=== PATIENT | female | born 1990 | race Two or more races ===

== ENCOUNTER 2017-09-13 08:00 | Outpatient (CLI) | payer MEDICAID | END 2017-09-13 23:59 | disposition home or self-care (01) | LOC: LAB.R 08:00 | PROVIDERS: ATTEND Obstetrics & Gynecology | DX: Z36.9 Encounter for antenatal screening, unspecified (principal) | CPT/HCPCS: 87491; 87591 ==

== ENCOUNTER 2017-09-13 15:31 | Outpatient (CLI) | payer MEDICAID ==
[2017-09-13 16:07] LABS: BILIRUBIN,URINE NEGATIVE (NEGATIVE)
[2017-09-13 16:09] LABS: BASOPHILS % (AUTO) 0.5 %; EOSINOPHILS % (AUTO) 1.1 %; HCT - HEMATOCRIT 38.1 % (37.0-47.0); LYMPHOCYTES % (AUTO) 15.2 %; MEAN CORPUSCULAR HEMOGLOBIN 29.2 pg (27.0-31.0); MEAN CORPUSCULAR VOLUME 85.9 fL (81.0-99.0); MEAN PLATELET VOLUME 7.1 fL (7.9-10.8); MONOCYTES % (AUTO) 6.1 %; NEUTROPHILS % (AUTO) 77.1 %; RED BLOOD COUNT 4.44 10^6/uL (4.20-5.40); RED CELL DISTRIBUTION WIDTH 13.1 % (12.0-15.0); UNCORRECTED WHITE BLOOD COUNT 10.8 x10^3/uL; WHITE BLOOD COUNT 10.8 x10^3/uL (4.8-10.8)
[2017-09-13 16:23] LABS: WBC,URINE 0-3 /HPF (0-5)
[2017-09-13 16:28] LABS: BAND NEUTROPHILS % (MANUAL) 3 %; LYMPHOCYTES % (MANUAL) 25 %; NEUTROPHILS % (MANUAL) 68 %; NP AUTO DIFFERENTIAL? YES; NP MAN DIFFERENTIAL? NO; PLATELET ESTIMATE, MANUAL NORMAL (130-450,000) (NORMAL); PLATELET MORPHOLOGY NORMAL APPEARANCE (NORMAL); TOTAL CELLS COUNTED 100
[2017-09-15 18:01] LABS: TEST RESULT REPORT
== END 2017-09-13 15:32 | disposition home or self-care (01) ==
LOC: LAB 15:31
PROVIDERS: ATTEND Obstetrics & Gynecology
DX: Z36.9 Encounter for antenatal screening, unspecified (principal)
CPT/HCPCS: 36415; 81001; 81599; 85025; 86762; 86780; 86850; 86900; 86901; 87340; 87389

== ENCOUNTER 2017-11-03 08:00 | Outpatient (CLI) | payer MEDICAID | END 2017-11-03 08:01 | LOC: LAB.R 08:00 | PROVIDERS: ATTEND Obstetrics & Gynecology | DX: N76.0 Acute vaginitis (principal) | CPT/HCPCS: 87480; 87510; 87660 ==

== ENCOUNTER 2017-12-15 08:20 | Outpatient (CLI) | payer MEDICAID ==
--- NOTE | 2017-12-16 11:30 | Ultrasound Report ---
OB ULTRASOUND: 12/15/2017 CLINICAL INDICATION: anatomy. TECHNIQUE: Real-time scanning was performed with digital sales representative static images obtained. LAST MENSTRUAL PERIOD 07/15/2017 CLINICAL AGE 21 weeks 6 days US AGE 22 weeks 1 day EFW HADLOCK 461 grams EFW% HADLOCK --% HEART RATE 152 bpm EDC 04/21/2018 US EDC 04/19/2018 BPD HADLOCK 23 weeks 2 days; Mean mm 56 HC HADLOCK 21 weeks 6 days; Mean mm 196 AC HADLOCK 22 weeks 3 days; Mean mm 175 FL HADLOCK 21 weeks 1 day; Mean mm 35 PRESENTATION moving PLACENTAL LOCATION posterior CERVICAL LENGTH 5.0 cm AMNIOTIC FLUID 12.84 cm, subjectively normal - MVP 3.9 cm FINDINGS There is a single viable intrauterine gestation, in variable position. heart rate is 152 BPM. The placenta is posterior without evidence of previa. Amniotic fluid volume is subjectively normal, with a deepest pocket of 3.9 cm. By size, the fetus measures 22 weeks 1 day (21 weeks 6 days by LMP). The following anatomic structures were visualized and appear normal: The intracranial contents, including the ventricles and posterior fossa; the lips and orbits; the spine; the heart, including 4 chamber view and outflow tracts, and diaphragm; the abdominal contents, including the stomach, the bilateral kidneys, and urinary bladder, as well as a normal 3 vessel cord insertion; 4 limbs. No free fluid is present. Incidental note is made of a right corpus luteum. IMPRESSION: SINGLE VIABLE INTRAUTERINE GESTATION, WITH SIZE IN KEEPING WITH LMP DATING. NORMAL ANATOMIC SURVEY. TD: 12/15/2017 17:43 [facility]
== END 2017-12-15 08:21 | disposition home or self-care (01) ==
LOC: DI 08:20
PROVIDERS: ATTEND Obstetrics & Gynecology
DX: Z36.9 Encounter for antenatal screening, unspecified (principal)
CPT/HCPCS: 76811

== ENCOUNTER 2018-01-23 10:56 | Outpatient (CLI) | payer MEDICAID ==
[2018-01-23 12:56] LABS: HGB - HEMOGLOBIN 10.9 g/dL (12.0-16.0); MEAN CORPUSCULAR HEMOGLOBIN 30.7 pg (27.0-31.0); MEAN CORPUSCULAR HGB CONC 34.1 g/dL (32.0-36.0); MEAN PLATELET VOLUME 7.1 fL (7.9-10.8); RED BLOOD COUNT 3.54 10^6/uL (4.20-5.40); RED CELL DISTRIBUTION WIDTH 13.3 % (12.0-15.0); WHITE BLOOD COUNT 10.1 x10^3/uL (4.8-10.8)
== END 2018-01-23 10:57 | disposition home or self-care (01) ==
LOC: LAB 10:56
PROVIDERS: ATTEND Registered Nurse
DX: Z34.82 Encounter for supervision of other normal pregnancy, second trimester (principal)
CPT/HCPCS: 36415; 82950; 86850

== ENCOUNTER 2018-02-09 17:00 | Inpatient (IN) | payer MEDICAID ==
[2018-02-09] MEDS ORDERED: SODIUM CHLORIDE FLUSH 0.9% 10 ML SYRINGE ONE (17:37)
[2018-02-09 18:01] LABS: BASOPHILS % (AUTO) 0.1 %; EOSINOPHILS % (AUTO) 0.2 %; HGB - HEMOGLOBIN 10.3 g/dL (12.0-16.0); LYMPHOCYTES % (AUTO) 6.4 %; MEAN CORPUSCULAR HEMOGLOBIN 29.6 pg (27.0-31.0); MEAN CORPUSCULAR HGB CONC 33.7 g/dL (32.0-36.0); MEAN CORPUSCULAR VOLUME 87.8 fL (81.0-99.0); MEAN PLATELET VOLUME 6.3 fL (7.9-10.8); MONOCYTES % (AUTO) 5.2 %; NEUTROPHILS % (AUTO) 88.1 %; PLT - PLATELET COUNT 334 10^3/uL (130-450); RED BLOOD COUNT 3.47 10^6/uL (4.20-5.40); WHITE BLOOD COUNT 8.8 x10^3/uL (4.8-10.8)
[2018-02-09 18:04] LABS: ABNORMAL LYMPHS % (MANUAL) 0 %
[2018-02-09] MEDS ORDERED: LACTATED RINGERS 1,000 ML IV ONE (18:16)
[2018-02-09 18:34] LABS: BAND NEUTROPHILS % (MANUAL) 6 %; LYMPHOCYTES # (MANUAL) 0.3 10^3/uL (1.5-3.5); LYMPHOCYTES % (MANUAL) 3 %; MONOCYTES # (MANUAL) 0.4 10^3/uL (0.0-1.0); NEUTROPHILS # (MANUAL) 8.2 10^3/uL (1.5-6.6); NEUTROPHILS % (MANUAL) 87 %
[2018-02-09 18:35] LABS: DIFFERENTIAL COMMENT MANUAL DIFFERENTIAL; PLATELET ESTIMATE, MANUAL NORMAL (130-450,000) (NORMAL); PLATELET MORPHOLOGY NORMAL APPEARANCE (NORMAL); RBC MORPHOLOGY (MULTIPLE) NORMAL APPEARANCE (NORMAL)
--- NOTE | 2018-02-09 18:41 | HISTORY & PHYSICAL EXAMINATION ---
Admit History - Instructions [place]zanita/Slash: -Left hand click circles element as positive or present. -Right hand click slashes element as negative or not present. - Visit Reason Visit Reason: Bleeding - moderate - : 1 Parity: 0 Premature: 0 Ectopic: 0 : 0 Care: positive: [facility] Complications This : positive: None Smoking Status: Never smoker - Mother's Labs Mother's Blood Type: positive: B Mother's RH: positive: Positive GBS: positive: Other (unknown) Rubella Status: positive: Immune Review of Systems - Constitutional Constitutional: reports: Fever, Chills, Malaise, Weakness - Eyes Eyes: denies: Blurred vision, Spots in vision - Cardiovascular Cariovascular: denies: Irregular heart rate, Palpitations, Chest pain, Edema - Respiratory Respiratory: reports: Cough. denies: Hemoptysis, SOB at rest, SOB with exertion - Gastrointestinal Gastrointestinal: denies: Abdominal pain, Abdominal distention - Genitourinary Genitourinary: denies: Dysuria, Frequency, Urgency - Musculoskeletal Musculoskeletal: reports: Muscle pain, Back pain - Integumentary Integumentary: denies: Rash, Pruritis, Lesions - Neurological Neurological: reports: General weakness. denies: Headache, Dizziness, Numbness Physical - Abdominal Exam Vital Signs: Temp Pulse Resp BP Pulse Ox 37.4 C 125 H 18 101/58 L 100 02/09/18 17:13 02/09/18 17:13 02/09/18 17:13 02/09/18 17:13 02/09/18 17:13 Contraction Frequency (min/apart): irregular Contraction Intensity: positive: Mild Uterine Resting Tone: positive: Soft - Monitoring Heart Rate Baseline: 170 - Vaginal Exam Membranes: positive: Membranes intact - Other Notes Labor Progress Note/Additional Text: S: Gladys presents w/ a complaint of painless vaginal bleeding that began today at 1600 as brown vaginal bleeding w/ progression to more copious bright red vaginal bleeding such that she saturated an entire pad x1. She did not have any changes in vaginal d/c prior to that. She has not sustained trauma or lifted anything heavy. She has not had recent coitus. She has had a profound cough x2 weeks & has been taking tamiflu for presumed influenza. O: AAOx3, NAD WA female EFM: BL 180bpm, +accels, occ variable decels to socorro in 150s, mod variability TOCO: occ UCs, abd soft, NT, palpable movement SVE deferred: Dr. domo MD, to bedside to evaluate & will himself perform speculum exam Lungs w/ b/l rales t/o all lobes, no wheezing A: 27 y/o @ 30w w/ painless vaginal bleeding, no previa on 20 week US, tachycardia, maternal tachycardia P: 1. Stat US ordered to r/o abruption 2. CBC & type & screen now 3. Bolus 1000mL LR now 4. CXR 5. GBS cx 6. Dr. Hurt requested to evaluate patient for ongoing management
[2018-02-09] MEDS ORDERED: BETAMETHASONE 30 MG/5 ML VIAL IM SCH ×2 (19:15→20:05)
[2018-02-09] MEDS: LACTATED RINGERS 1,000 ML IV SCH (19:30)
--- NOTE | 2018-02-09 20:11 | Ultrasound Preliminary Report ---
Exam: US OB LIMITED IMPRESSION: 1. Hoyt live intrauterine with gestational age 29 weeks 5 days based on established ED D. 2. No unexpected abnormality. [facility] SITE ID: [id number]
--- NOTE | 2018-02-09 20:33 | Ultrasound Report ---
EXAM: LIMITED OBSTETRICAL ULTRASOUND, TRANSABDOMINAL SCANNING ONLY EXAM DATE: 02/09/2018 07:43 PM. CLINICAL HISTORY: Bleeding. COMPARISON: 12/15/2017. TECHNIQUE: Real-time sonographic evaluation of the fetus performed by the dinkey engineer. Multiple repre sentative static images were saved for review. Transvaginal imaging not performed. DATING: Established EGA 29 weeks 5 days with CLOVIS 04/21/2018. GENERAL EVALUATION Hoyt . Cardiac activity: 174 bpm. movement: Visualized. Presentation: Cephalic. Placenta: Fundal position. Normal. Amniotic fluid: Not quantified. Subjectively normal. ANATOMY Not evaluated. MATERNAL STRUCTURES Maternal cervix long and closed measured transabdominally, 3.7 cm. IMPRESSION: 1. Hoyt live intrauterine with gestational age 29 weeks 5 days based on established ED D. 2. No unexpected abnormality. [facility] Referring Provider Line: [phone] SITE ID: [id number]
--- NOTE | 2018-02-09 20:51 | XRAY Report ---
EXAM: CHEST RADIOGRAPHY EXAM DATE: 02/09/2018 08:16 PM. CLINICAL HISTORY: Persistent URI with cough, bilateral rales. COMPARISON: None. TECHNIQUE: 2 views. FINDINGS: Lungs/Pleura: Extensive left lower lobe opacity, otherwise no focal opacities evident. No pleural eff usion. No pneumothorax. Hypoinflated lungs. Mediastinum: Heart and mediastinal contours are unremarkable. Other: No bony abnormality noted. IMPRESSION: Left lower lobe pneumonia. [facility] Referring Provider Line: [phone] SITE ID: [id number]
[2018-02-09] MEDS: ACETAMINOPHEN 325 MG TABLET PO PRN (22:25)
[2018-02-09] MEDS: guaiFENesin/DEXTROMETHORPHAN 10 ML UDC PO PRN (22:26)
--- NOTE | 2018-02-09 23:11 | HISTORY & PHYSICAL EXAMINATION ---
DATE OF SERVICE: 02/09/2018 Physician: Joselito Hurt MD CONSULTATION AND HISTORY AND PHYSICAL EXAMINATION DIAGNOSES 1. A 29-week 6-day gestation. 2. Vaginal bleeding. 3. Chronic cough. 4. Recent influenza. 5. Maternal blood type B positive. HISTORY OF PRESENT ILLNESS: Patient is a 27-year-old [place] primigravida at 29 weeks 6 days gestation based on 9-week crown rump length and dates. [facility] and then midwifery service. Patient called to the office at roughly 4 o'clock to report brown discharge starting at 1400 that progressed to bright red and saturated 1 pad. She had no prior bleeding episodes or vaginal discharge. She has not had recent intercourse. She has had a persistent cough and last week was diagnosed with influenza and given 1 course of Tamiflu. The cough is nonproductive. Her fever is resolved. She has no UTI symptoms. She presents alert and stable, but tachycardic with tachycardia noted as well. PAST MEDICAL HISTORY: Patient is a healthy active woman with no chronic disease history. PAST SURGICAL HISTORY: None. ALLERGIES: NO KNOWN DRUG ALLERGIES. MEDICATIONS 1. vitamins. 2. No recent antibiotics. 3. Tylenol. 4. Cough medicine. FAMILY HISTORY: Diabetes, paternal relatives. Depression, maternal grandfather ; stroke and CAD. No congenital anomaly history. No thrombophilia or coagulation defect known. Patient did receive flu vaccine. SOCIAL HISTORY: , some college. 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 No drug, tobacco or alcohol use. REVIEW OF SYSTEMS CONSTITUTIONAL: No fevers, chills. Recent influenza as noted before. HEENT: No current URI or URI symptoms. RESPIRATORY: Cough and bronchitic symptoms. CARDIOVASCULAR: Negative. No orthostatic dizziness. GASTROINTESTINAL: Negative. : Reference HPI. EXTREMITIES: Negative. No edema. NEUROLOGIC: No problems reported. No headaches. No focal symptoms. SKIN: No rash. PHYSICAL EXAMINATION GENERAL: Patient is somewhat anxious, lying quietly on the stretcher, not in distress. VITAL SIGNS: Temperature 37.4, pulse 125, respirations 18, BP 101/58. Pulse oximetry 100. HEENT: Supple neck. No lymphadenopathy. LUNGS: Occasional rales and wheeze. CARDIOVASCULAR: Regular flow murmur. ABDOMEN: No organomegaly, no tenderness, no CVA tenderness. UTERUS: Appropriate size. A contractile, nontender, normal tone Ultrasound: Cervical length is 3.3 cm with no funneling. There is adequate fluid. Close look at the cervical area finds no evidence of vasa previa. The placenta is intact with no clot or evidence of abruption. Placental lakes present. (Await formal radiology report ) External monitor tracing: Baseline to 180s variability maintained no decelerations EXTERNAL GENITALIA: With no lesions, normal. VAGINA: Scant old brown blood in the vault. CERVIX: Cervix long, thick, 1 cm Dilation, bloody mucus present. No significant active flow. Possible mild cervicitis. No fluid suggestive of ruptured membranes GBS, amniostat and GC chlamydia sent. Amniostat is negative. (Amnio stat unreadable due to presence of blood) EXTREMITIES: Nonedematous. Moves all 4 extremities well. No joint tenderness. LABS: Hemoglobin 10.3. White count 8.8, platelets 334, slightly neutrophilia. Two units of blood placed on crossmatch. Urinalysis pending. ASSESSMENT: Patient is a 27-year-old [place] primigravida at 29 weeks 6 days that experienced Painless bleeding without evident abruption, labor, or cervicitis. Ultrasound finds no suspicion retroplacental collections or vasa previa. In all likelihood , this was a spontaneous and probably self-limited bleed from placental jaramillo. Her chronic coughing undoubtedly is a provoking factor. Uncertain if patient has pneumonia and a chest x-ray is ordered. Looking at her 28-week labs originally her hemoglobin was 13 and has descended 3 grams. Uncertain if this can be attributed to dehydrationdDuring her Influenza with subsequent aggressive hydration on her current visit. Influenza in is a high risk disease that frequently involves into pneumonia. Currently, patient is stable and not in labor. Discussed case with Carla Boss of Pediatrics and as long as there is no labor, she is comfortable with keeping patient in-house. PLAN 1. Betamethasone 2 doses 12 mg. 2. Serial hemoglobin. 3. Ultrasound for growth tomorrow. 4. Normal activity and diet. 5. Coordinate care through midwifery service. 6. If vaginal bleeding is not self-limited. Transfer to a higher level care where level 2 ultrasound can be done to determine possible source of bleed. TD: 02/09/2018 23:09 DANNY
[2018-02-10] MEDS: LACTATED RINGERS 1,000 ML IV SCH ×2 (02:26→12:48)
[2018-02-10] MEDS: guaiFENesin/DEXTROMETHORPHAN 10 ML UDC PO PRN ×5 (03:15→23:58)
[2018-02-10 05:44] LABS: HGB - HEMOGLOBIN 9.8 g/dL (12.0-16.0); MEAN CORPUSCULAR HGB CONC 33.9 g/dL (32.0-36.0)
[2018-02-10 05:59] LABS: BASOPHILS % (AUTO) 0.2 %; EOSINOPHILS % (AUTO) 0.1 %; LYMPHOCYTES % (AUTO) 7.1 %; MEAN CORPUSCULAR HEMOGLOBIN 29.7 pg (27.0-31.0); MEAN CORPUSCULAR VOLUME 87.7 fL (81.0-99.0); MEAN PLATELET VOLUME 6.4 fL (7.9-10.8); MONOCYTES % (AUTO) 3.3 %; NEUTROPHILS % (AUTO) 89.3 %; PLT - PLATELET COUNT 268 10^3/uL (130-450); RED BLOOD COUNT 3.29 10^6/uL (4.20-5.40); RED CELL DISTRIBUTION WIDTH 13.4 % (12.0-15.0); WHITE BLOOD COUNT 7.9 x10^3/uL (4.8-10.8)
[2018-02-10 06:09] LABS: ABNORMAL LYMPHS % (MANUAL) 0 %
[2018-02-10 06:20] LABS: BAND NEUTROPHILS % (MANUAL) 9 %; DIFFERENTIAL COMMENT MANUAL DIFFERENTIAL; EOSINOPHILS # (MANUAL) 0.1 10^3/uL (0-0.7); LYMPHOCYTES # (MANUAL) 0.4 10^3/uL (1.5-3.5); LYMPHOCYTES % (MANUAL) 5 %; MONOCYTES # (MANUAL) 0.2 10^3/uL (0.0-1.0); MYELOCYTES % (MANUAL) 1 %; NEUTROPHILS # (MANUAL) 7.1 10^3/uL (1.5-6.6); NEUTROPHILS % (MANUAL) 81 %; PLATELET ESTIMATE, MANUAL NORMAL (130-450,000) (NORMAL); RBC MORPHOLOGY (MULTIPLE) NORMAL APPEARANCE (NORMAL)
[2018-02-10] MEDS: ACETAMINOPHEN 325 MG TABLET PO PRN ×4 (08:07→23:58)
[2018-02-10] MEDS: PRENATAL VITAMIN TABLET PO SCH (08:07)
[2018-02-10] MEDS: POLYETHYLENE GLYCOL 3350 17 GM PACKET PO SCH (08:07)
--- NOTE | 2018-02-10 08:31 | PROVIDER PROGRESS NOTE ---
Subjective - Prog Note Date Prog Note Date: 02/10/18 Prog Note Time: 07:05 - Subjective Pt reports feeling: No change Subjective: Gladys reports no fevers, chills or continued productive cough. She has relief with Robitussin-DM. She has no air hunger, pleuritic pain or shortness of breath. She was informed of the x-ray consistent with left lower lobe pneumonia. She reports no contractions or continued bleeding. She notes movement.. She was informed that Dr. Ordonez would be the hoop maker. A referral to internal medicine Dr. No was made. Objective - Vital Signs/Intake & Output Vital Signs: Vital Signs x48h Temp Pulse Resp BP Pulse Ox 02/10/18 04:45 94.5 F L 101 H 16 98/50 L 100 Intake & Output: Intake & Output 02/07/18 02/08/18 02/09/18 02/10/18 23:59 23:59 23:59 23:59 Intake Total 1050 1400 Output Total 1950 Balance 1050 -550 - Lab Results Fish Bones: 02/10/18 05:25 Other Labs: Lab Results x24hrs 02/10/18 02/09/18 02/09/18 Range/Units 05:25 17:40 17:40 WBC 7.9 8.8 (4.8-10.8) x10^3/uL RBC 3.29 L 3.47 L (4.20-5.40) 10^6/uL Hgb 9.8 L 10.3 L (12.0-16.0) g/dL Hct 28.9 L 30.5 L (37.0-47.0) % MCV 87.7 87.8 (81.0-99.0) fL MCH 29.7 29.6 (27.0-31.0) pg MCHC 33.9 33.7 (32.0-36.0) g/dL RDW 13.4 13.0 (12.0-15.0) % Plt Count 268 334 (130-450) 10^3/uL MPV 6.4 L 6.3 L (7.9-10.8) fL Neut # Not Reportable Not Reportable Lymph # Not Reportable Not Reportable [place] # Not Reportable Not Reportable Eos # Not Reportable Not Reportable Baso # Not Reportable Not Reportable Absolute Nucleated RBC Not Reportable Not Reportable Total Counted 100 100 Band Neuts % (Manual) 9 6 (0 - 10) % Abnorm Lymph % (Manual) 0 0 % Myelocytes % 1 H ( - 0) % Nucleated RBC % Not Reportable Not Reportable Neutrophils # (Manual) 7.1 H 8.2 H (1.5-6.6) 10^3/uL Lymphocytes # (Manual) 0.4 L 0.3 L (1.5-3.5) 10^3/uL Monocytes # (Manual) 0.2 0.4 (0.0-1.0) 10^3/uL Eosinophils # (Manual) 0.1 0.0 (0-0.7) 10^3/uL Basophils # (Manual) 0.0 0.0 (0-0.1) 10^3/uL Differential Comment MANUAL DIFFERENTIAL MANUAL DIFFERENTIAL Manual Slide Review Indicated WBC Morphology NORMAL APPEARANCE (NORMAL) Platelet Estimate NORMAL (130-450,000) NORMAL (130-450,000) (NORMAL) Platelet Morphology NORMAL APPEARANCE (NORMAL) RBC Morph Micro Appear NORMAL APPEARANCE NORMAL APPEARANCE (NORMAL) Blood Type B POSITIVE Antibody Screen NEGATIVE Physical Exam - Physical Exam General: positive: No acute distress, Well developed/nourished, Alert HEENT: positive: Moist mucous membranes Neck: positive: Supple w/out meningeal sx Cardiac: positive: Regular Rate (No significant murmur rub or click) Resipratory: positive: Rales (Scattered rales mostly in the left lobes) Abdomen: positive: Normal Bowel sounds (Benign abdominal exam) Female : positive: Enlarged uterus ( . , 30 week size; nontender normal resting tone; no contractions palpable. Review of external monitor tracing findings occasional irritability and heart tones now is stabilized into the 120s-130s with moderate variability. Occasional variable deceleration to 100/90 on a rare occasion.) Back: positive: Normal ROM Extremities: positive: Normal ROM, No pedal edema, Non tender Skin: positive: Warm and dry Neurologic: positive: Alert and Oriented X 3, Normal motor/no weakness, Normal Sensation, Normal Speech Assessment/Plan - Assessment/Plan Assessment: Patient is experienced a self-limited bleeding episode at 30 weeks gestation probably secondary to strong and chronic coughing due to pneumonia. There is no obvious labor or signs of abruption. Maternal hemoglobin has dropped from 10.3-9.8 which may reflect equilibration after IV fluid boluses. Hemoglobin should be rechecked later today to ensure there is no hidden blood loss. well-being is not a concern heart tracing category 1 overall. Growth ultrasound today. Pneumonia is a common consequence of influenza in . Will treat this aggressively and have contacted internal medicine hospitalist service. Plan: PLAN * Left lower lobe pneumonia will require antibiotics in which the internal medicine hospitalist service can guide the best choice. Consultation with Dr. No has been called. * Growth check ultrasound today * Continued supportive care * Dr. Ordonez is now the hoop maker regional education manager for this patient.
--- NOTE | 2018-02-10 10:35 | Ultrasound Report ---
FOLLOWUP OB ULTRASOUND: 02/10/2018 HISTORY: Spotting. TECHNIQUE: Transabdominal scanning by the chief cardiopulmonary technologist with saved static images reviewed. COMPARISON: First ultrasound 12/15/2017. Last menstrual period 07/15/2017. FINDINGS: EGA based on LMP is 30 weeks 0 days with CLOVIS 04/21/2018. Composite measurements of biparietal diameter, head circumference, abdominal circumference, and femur length today correspond to an age of 30 weeks 1 day, CLOVIS 04/20/2018, concordant with expected age by both first ultrasound and LMP. cardiac activity 135 beats per minute. Fetus is in cephalic presentation without evidence of placenta previa or vasa previa. Placenta position is posterior with a left wrap. There is no evidence of placental abruption or placental abnormality. ANKITA 14 cm with MVP 4.9 cm. Estimated weight 1461 grams, 24th percentile. IMPRESSION: SINGLE INTRAUTERINE GESTATION IN CEPHALIC PRESENTATION WITH NORMAL INTERVAL GROWTH SINCE THE ULTRASOUND OF 12/15/2017. AN EXPLANATION FOR SPOTTING IS NOT IDENTIFIED. TD: 02/10/2018 10:34 [facility]
[2018-02-10] MEDS: AZITHROMYCIN 250 MG TABLET PO SCH (12:49)
[2018-02-10] MEDS: AMPICILLIN/SULBACTAM 1.5 GM in SODIUM CHLORIDE 0.9% MINIBAG 100 ML IV SCH ×2 (12:49→18:08)
[2018-02-10] MEDS: LACTOBACILLUS RHAMNOSUS GG CAPSULE PO SCH (12:50)
[2018-02-10 15:14] LABS: BASOPHILS % (AUTO) 0.1 %; HGB - HEMOGLOBIN 9.2 g/dL (12.0-16.0); LYMPHOCYTES % (AUTO) 7.8 %; MEAN CORPUSCULAR HEMOGLOBIN 29.4 pg (27.0-31.0); MEAN CORPUSCULAR HGB CONC 33.4 g/dL (32.0-36.0); MEAN CORPUSCULAR VOLUME 87.9 fL (81.0-99.0); MEAN PLATELET VOLUME 6.5 fL (7.9-10.8); MONOCYTES % (AUTO) 6.8 %; NEUTROPHILS % (AUTO) 85.3 %; PLT - PLATELET COUNT 296 10^3/uL (130-450); RED BLOOD COUNT 3.13 10^6/uL (4.20-5.40); RED CELL DISTRIBUTION WIDTH 13.5 % (12.0-15.0); WHITE BLOOD COUNT 8.2 x10^3/uL (4.8-10.8)
[2018-02-10 15:21] LABS: ABNORMAL LYMPHS % (MANUAL) 0 %
--- NOTE | 2018-02-10 15:28 | PROVIDER PROGRESS NOTE ---
Subjective - Prog Note Date Prog Note Date: 02/10/18 Prog Note Time: 15:26 - Subjective Pt reports feeling: Improved (Pt notes improvement with Antibiotics of Unisyn and Azithromycin. minimal brown vaginal discharge . Good FM) Objective - Vital Signs/Intake & Output Reviewed Vital Signs: Yes Vital Signs: Vital Signs x48h Temp Pulse Resp BP Pulse Ox 02/10/18 13:00 34.2 C L 96 20 103/67 98 02/10/18 08:20 34.6 C L 82 18 99/66 99 Intake & Output: Intake & Output 02/07/18 02/08/18 02/09/18 02/10/18 23:59 23:59 23:59 23:59 Intake Total 1050 2400 Output Total 1950 Balance 1050 450 - Objective General Appearance: positive: No acute distress, Alert Respiratory: positive: Chest non-tender, No respiratory distress, Rales (Base of her left lower loab.) Cardiovascular: positive: Regular rate & rhythm, No murmur - Lab Results Fish Bones: 02/10/18 14:58 Other Labs: Lab Results x24hrs 02/10/18 02/10/18 02/09/18 Range/Units 14:58 05:25 17:40 WBC 8.2 7.9 (4.8-10.8) x10^3/uL RBC 3.13 L 3.29 L (4.20-5.40) 10^6/uL Hgb 9.2 L 9.8 L (12.0-16.0) g/dL Hct 27.5 L 28.9 L (37.0-47.0) % MCV 87.9 87.7 (81.0-99.0) fL MCH 29.4 29.7 (27.0-31.0) pg MCHC 33.4 33.9 (32.0-36.0) g/dL RDW 13.5 13.4 (12.0-15.0) % Plt Count 296 268 (130-450) 10^3/uL MPV 6.5 L 6.4 L (7.9-10.8) fL Neut # Not Reportable Lymph # Not Reportable [place] # Not Reportable Eos # Not Reportable Baso # Not Reportable Absolute Nucleated RBC Not Reportable Total Counted 100 Band Neuts % (Manual) 9 (0 - 10) % Abnorm Lymph % (Manual) 0 % Myelocytes % 1 H ( - 0) % Nucleated RBC % Not Reportable Neutrophils # (Manual) 7.1 H (1.5-6.6) 10^3/uL Lymphocytes # (Manual) 0.4 L (1.5-3.5) 10^3/uL Monocytes # (Manual) 0.2 (0.0-1.0) 10^3/uL Eosinophils # (Manual) 0.1 (0-0.7) 10^3/uL Basophils # (Manual) 0.0 (0-0.1) 10^3/uL Differential Comment MANUAL DIFFERENTIAL Manual Slide Review WBC Morphology (NORMAL) Platelet Estimate NORMAL (130-450,000) (NORMAL) Platelet Morphology (NORMAL) RBC Morph Micro Appear NORMAL APPEARANCE (NORMAL) Blood Type B POSITIVE Antibody Screen NEGATIVE 02/09/18 Range/Units 17:40 WBC 8.8 (4.8-10.8) x10^3/uL RBC 3.47 L (4.20-5.40) 10^6/uL Hgb 10.3 L (12.0-16.0) g/dL Hct 30.5 L (37.0-47.0) % MCV 87.8 (81.0-99.0) fL MCH 29.6 (27.0-31.0) pg MCHC 33.7 (32.0-36.0) g/dL RDW 13.0 (12.0-15.0) % Plt Count 334 (130-450) 10^3/uL MPV 6.3 L (7.9-10.8) fL Neut # Not Reportable Lymph # Not Reportable [place] # Not Reportable Eos # Not Reportable Baso # Not Reportable Absolute Nucleated RBC Not Reportable Total Counted 100 Band Neuts % (Manual) 6 (0 - 10) % Abnorm Lymph % (Manual) 0 % Myelocytes % ( - 0) % Nucleated RBC % Not Reportable Neutrophils # (Manual) 8.2 H (1.5-6.6) 10^3/uL Lymphocytes # (Manual) 0.3 L (1.5-3.5) 10^3/uL Monocytes # (Manual) 0.4 (0.0-1.0) 10^3/uL Eosinophils # (Manual) 0.0 (0-0.7) 10^3/uL Basophils # (Manual) 0.0 (0-0.1) 10^3/uL Differential Comment MANUAL DIFFERENTIAL Manual Slide Review Indicated WBC Morphology NORMAL APPEARANCE (NORMAL) Platelet Estimate NORMAL (130-450,000) (NORMAL) Platelet Morphology NORMAL APPEARANCE (NORMAL) RBC Morph Micro Appear NORMAL APPEARANCE (NORMAL) Blood Type Antibody Screen Assessment/Plan - Problem List (1) Pneumonia affecting in third trimester Impression: Reactive NST (2) 30 weeks gestation of Impression: Pt is on Azithromycin and Unisyn. Appears to be improving. Saline lock IV
[2018-02-10] MEDS: SODIUM CHLORIDE FLUSH 0.9% 10 ML SYRINGE IVP PRN ×2 (15:35→18:08)
[2018-02-10 15:42] LABS: BAND NEUTROPHILS % (MANUAL) 27 %; LYMPHOCYTES # (MANUAL) 0.7 10^3/uL (1.5-3.5); LYMPHOCYTES % (MANUAL) 8 %; METAMYELOCYTES % (MANUAL) 1 %; MONOCYTES # (MANUAL) 0.3 10^3/uL (0.0-1.0); MYELOCYTES % (MANUAL) 1 %; NEUTROPHILS # (MANUAL) 7.1 10^3/uL (1.5-6.6); NEUTROPHILS % (MANUAL) 59 %
[2018-02-10 15:43] LABS: DIFFERENTIAL COMMENT MANUAL DIFFERENTIAL; PLATELET ESTIMATE, MANUAL NORMAL (130-450,000) (NORMAL); PLATELET MORPHOLOGY NORMAL APPEARANCE (NORMAL); RBC MORPHOLOGY (MULTIPLE) NORMAL APPEARANCE (NORMAL)
[2018-02-10] MEDS ORDERED: BETAMETHASONE 30 MG/5 ML VIAL IM SCH (18:00)
--- NOTE | 2018-02-10 19:37 | CONSULTATION NOTE ---
DATE OF SERVICE: 02/10/2018 Physician: Chika No MD REASON FOR CONSULTATION: To advise on the management of pneumonia in a patient who is at 29 weeks' gestation. Consultation was requested from the obstetricians, Dr. Hurt and Dr. Ordonez. CHIEF COMPLAINT: Cough. ASSESSMENT/ACTIVE ISSUES/DIAGNOSES 1. Community-acquired pneumonia. Complicated by . 2. Vaginal bleed, in the setting of coughing - handled by the Spinning Bath Person service. 3. Anemia, likely physiologic in . 4. Hemodynamically stable. 5. Systemic inflammatory response, secondary to pneumonia plus physiologic changes in the setting of , which include tachycardia. RECOMMENDATIONS 1. Vaginal bleeding and -related issues are handled by the Spinning Bath Person service. 2. Regarding pneumonia, per evidence-based standard, I advise to use Unasyn and Zithromax. 3. Probiotic for bowel prophylaxis. 4. Tylenol for symptom control. 5. Supplemental oxygen if needed. 6. For cough, I would not use any cough suppressants, given limited benefit. I would use honey, which would be just as effective and would not have any effect on the . 7. Regarding the antibiotic course, I recommend to complete at least 3 days of IV antibiotic course on Unasyn. Zithromax can be used orally, and I recommend altogether a 7- day antibiotic course. If the 3 days of IV Unasyn completed, I recommend to finish 4 additional days on oral Augmentin 875/125 mg twice daily. The Zithromax could be stopped after a 5-day course. Thank you, Drs. Ordonez and Licha, for involving us in the care of this very pleasant patient. The medical service will be available p.r.n. Please call us again if there is any further issue. CHIEF COMPLAINT: Cough and vaginal bleed. HISTORY OF PRESENT ILLNESS: The patient is a pleasant 27-year-old white female with no significant past medical history who had an uneventful normal up to about a week ago. At that point, she developed cough and called the webbing weaver who gave her Tamiflu. Subsequently, she was also given Tessalon Perles; however, she was not seen and most of these orders were done over the phone. A few days after her cough started, she became febrile. Since then, she continued with ongoing fever. Regarding her cough, it did not really get better , and the day prior to presentation, she actually developed vaginal bleed. Upon presentation to the ER, she was found with normal white blood cell count and chest x-ray showed left lower lobe pneumonia. Notably, prior to presenting, she actually completed 5 days on Tamiflu. When I interviewed the patient, she reported fever, cough, and vaginal bleed. No additional symptom or complaint. She does not have past history of pneumonia. PAST MEDICAL HISTORY: None significant. OUTPATIENT MEDICATIONS 1. vitamins. 2. Tessalon Perles. 3. Recently finished Tamiflu. FAMILY HISTORY: Mother had Graves disease. SOCIAL HISTORY: The patient does not smoke, does not drink. REVIEW OF SYSTEMS: Please see pertinent positives listed above at history of present illness. The patient did not report additional complaints on the 12-point review. PHYSICAL EXAMINATION VITAL SIGNS: Temperature maximum 38 Celsius, heart rate between 80 and 100, blood pressure 99/66, respiratory rate 18, oxygen saturation 99% on room air. GENERAL: The patient is a well-developed, nontoxic-appearing young female. RESPIRATORY: Good air entry throughout. No increased work of breathing, speaking in full sentences without supplemental oxygen. No wheezing, no crackles. HEART: S1, S2, regular, tachycardia. No pathologic murmur. ABDOMEN: abdomen, nontender. LYMPHATIC: No lymphedema. MUSCULOSKELETAL: Unremarkable, atraumatic. SKIN: Mild pallor. No jaundice. NEUROLOGIC: Alert, oriented, nonfocal. PSYCHIATRIC: Cooperative. ASSESSMENT AND PLAN: 27-year-old female at 29 weeks' gestation who presented with pneumonia. Her main issue obstetric-casiano is vaginal bleed which was likely the result of coughing, at least that is what I gathered from the OB notes. Regarding the pneumonia, I advised on antibiotics and my recommendations are above. Time I spent with this consultation was 35 minutes. TD: 02/10/2018 19:36 DANNY
[2018-02-11] MEDS: AMPICILLIN/SULBACTAM 1.5 GM in SODIUM CHLORIDE 0.9% MINIBAG 100 ML IV SCH ×3 (00:08→12:18)
[2018-02-11] MEDS: SODIUM CHLORIDE FLUSH 0.9% 10 ML SYRINGE IVP SCH ×3 (00:46→09:35)
[2018-02-11] MEDS: guaiFENesin/DEXTROMETHORPHAN 10 ML UDC PO PRN (04:40)
[2018-02-11] MEDS: PRENATAL VITAMIN TABLET PO SCH (09:04)
[2018-02-11] MEDS: AZITHROMYCIN 250 MG TABLET PO SCH (09:04)
[2018-02-11] MEDS: LACTOBACILLUS RHAMNOSUS GG CAPSULE PO SCH (09:05)
[2018-02-11] MEDS: POLYETHYLENE GLYCOL 3350 17 GM PACKET PO SCH (09:13)
[2018-02-11] MEDS: LACTATED RINGERS 1,000 ML IV SCH (09:36)
--- NOTE | 2018-02-11 09:47 | PROVIDER PROGRESS NOTE ---
Subjective - Prog Note Date Prog Note Date: 02/11/18 Prog Note Time: 09:45 - Subjective Pt reports feeling: Improved (Pt notes decreased cough and phlem production. scant brown vagianl discharge. good FM.) Objective - Vital Signs/Intake & Output Reviewed Vital Signs: Yes Vital Signs: Vital Signs x48h Temp Pulse Resp BP Pulse Ox 02/11/18 09:20 97 16 105/58 L 98 02/11/18 09:07 36.3 C L 02/11/18 04:30 36.3 C L 82 16 91/57 L 98 Intake & Output: Intake & Output 02/08/18 02/09/18 02/10/18 02/11/18 23:59 23:59 23:59 23:59 Intake Total 1050 3178.333 750 Output Total 3225 350 Balance 1050 -46.667 400 - Objective General Appearance: positive: No acute distress, Alert Respiratory: positive: Chest non-tender, No respiratory distress, Breath sounds nml. negative: Wheezes, Rales Cardiovascular: positive: Regular rate & rhythm, No murmur, No gallop Abdomen: positive: Non-tender Skin: positive: Color nml, No rash - Lab Results Fish Bones: 02/10/18 14:58 Other Labs: Lab Results x24hrs 02/10/18 02/10/18 Range/Units 15:25 14:58 WBC 8.2 (4.8-10.8) x10^3/uL RBC 3.13 L (4.20-5.40) 10^6/uL Hgb 9.2 L (12.0-16.0) g/dL Hct 27.5 L (37.0-47.0) % MCV 87.9 (81.0-99.0) fL MCH 29.4 (27.0-31.0) pg MCHC 33.4 (32.0-36.0) g/dL RDW 13.5 (12.0-15.0) % Plt Count 296 (130-450) 10^3/uL MPV 6.5 L (7.9-10.8) fL Neut # Not Reportable Lymph # Not Reportable [place] # Not Reportable Eos # Not Reportable Baso # Not Reportable Absolute Nucleated RBC Not Reportable Total Counted 100 Band Neuts % (Manual) 27 H (0 - 10) % Abnorm Lymph % (Manual) 0 % Metamyelocytes % 1 H ( - 0) % Myelocytes % 1 H ( - 0) % Nucleated RBC % Not Reportable Neutrophils # (Manual) 7.1 H (1.5-6.6) 10^3/uL Lymphocytes # (Manual) 0.7 L (1.5-3.5) 10^3/uL Monocytes # (Manual) 0.3 (0.0-1.0) 10^3/uL Eosinophils # (Manual) 0.0 (0-0.7) 10^3/uL Basophils # (Manual) 0.0 (0-0.1) 10^3/uL Differential Comment MANUAL DIFFERENTIAL WBC Morphology 2+ TOXIC GRANULATION (NORMAL) Platelet Estimate NORMAL (130-450,000) (NORMAL) Platelet Morphology NORMAL APPEARANCE (NORMAL) RBC Morph Micro Appear NORMAL APPEARANCE (NORMAL) Influenza A (Rapid) Negative (Negative) Influenza B (Rapid) Negative (Negative) Influenza Types A,B Ag - Assessment/Plan - Problem List (1) Pneumonia affecting in third trimester Impression: Progressing will change to Augmentin 875 bid wiht azithromycin 500 mg daily. Discharge Medications Azithromycin 500 mg bid #4 Augmentin 875/125 #11 Iron sulfate 325 mg #60 Colace 100 mg #60 RTC 1 week
--- NOTE | 2018-02-11 10:20 | Discharge Plan ---
Discharge Plan Disposition: 01 Home, Self Care Condition: Good Diet: Regular Activity Restrictions: limited activity Shower Restrictions: No Driving Restrictions: No Weight Bearing: Full Weight No Smoking: If you smoke, Please STOP! Call for help. Follow-up with: Blanche Ahmadi ARNP [Primary Care Provider] -
[2018-02-11] MEDS: SODIUM CHLORIDE FLUSH 0.9% 10 ML SYRINGE IVP PRN (12:18)
[2018-02-11 12:25] VITALS: BP 107/65
== END 2018-02-11 13:23 | disposition home or self-care (01) | DRG 781 ==
LOC: WFO 17:00 → FBP 17:02 → WFO 19:09 → FBP 19:10 → OBSVTOIN 19:42
PROVIDERS: ADMIT Registered Nurse; ATTEND Obstetrics & Gynecology
DX: O46.93 Antepartum hemorrhage, unspecified, third trimester (principal); O99.013 Anemia complicating pregnancy, third trimester; J11.00 Influenza due to unidentified influenza virus with unspecified type of pneumonia; O99.513 Diseases of the respiratory system complicating pregnancy, third trimester; O76 Abnormality in fetal heart rate and rhythm complicating labor and delivery; D64.9 Anemia, unspecified; Z3A.29 29 weeks gestation of pregnancy
CPT/HCPCS: 36415; 71046; 76815; 76816; 85025; 86850; 86900; 86901; 87040; 87070; 87205; 87275; 87276; 87491; 87591; 87797; 99214

== ENCOUNTER 2018-02-17 11:14 | Inpatient (IN) | payer MEDICAID ==
[2018-02-17 11:33] VITALS: BP 103/71
[2018-02-17] MEDS ORDERED: MAGNESIUM SULFATE 1 GM/2 ML VIAL IVP SCH (11:50)
[2018-02-17 11:52] LABS: RUPTURE OF MEMBRANES PLUS POSITIVE (NEGATIVE)
[2018-02-17 11:56] LABS: BILIRUBIN,URINE NEGATIVE (NEGATIVE); GLUCOSE, URINE (UA) NEGATIVE (NEGATIVE); KETONES,URINE (UA) NEGATIVE (NEGATIVE); LEUKOCYTE ESTERASE, URINE NEGATIVE (NEGATIVE); NITRITE,URINE NEGATIVE (NEGATIVE); OCCULT BLOOD,URINE NEGATIVE (NEGATIVE); PH,URINE 7.5 PH (5.0-7.5); PROTEIN,URINE NEGATIVE (NEGATIVE); UROBILINOGEN,URINE 0.2 (NORMAL) E.U./dL (NORMAL)
[2018-02-17] MEDS ORDERED: LACTATED RINGERS 1,000 ML IV SCH (12:00)
[2018-02-17] MEDS ORDERED: MAGNESIUM SULFATE 40 GM in LACTATED RINGERS 420 ML IV SCH (12:00)
[2018-02-17] MEDS ORDERED: LACTATED RINGERS 1,000 ML IV ONE (12:00)
[2018-02-17] MEDS ORDERED: AMOXICILLIN 125 MG CHEW TABLET PO SCH (12:00)
[2018-02-17] MEDS ORDERED: SODIUM CHLORIDE FLUSH 0.9% 10 ML SYRINGE ONE (12:00)
[2018-02-17] MEDS ORDERED: PENICILLIN G POTASSIUM 5,000,000 UNIT in SODIUM CHLORIDE 0.9% MINIBAG 100 ML IV SCH (12:00)
[2018-02-17 12:10] LABS: CLARITY,URINE CLEAR (CLEAR)
--- NOTE | 2018-02-17 12:24 | PROVIDER PROGRESS NOTE ---
Subjective - Subjective Subjective: S: Gladys and Joel present to labor and delivery with complaints of vaginal leakage of clear fluid since 0800 this morning. Called [facility] and was advised to present immediately to [facility]. She reports continued leaking throughout the morning. Denies contractions. Reports +FM. Pt understandably tearful. supportive at bedside. O: FHR baseline 160s, moderate variability, + accels, no decels. Soaked pad upon arrival. Nitrizine pos. ROM plus positive. No contractions appreciated on toco. SVE 12/01/3, vertex by limited bedside transabdominal ultrasound. A: 27yo @ 31.0wks gestation by L=9wk U/S P: Dr. Pires consulted and care handed off. Rapid GBS collected - pending 18 gauge IV start Magnesium initiated for neuroprotection Penicillin G initiated for GBS prophylaxis Amoxcycillin PO 500mg initiated for infection prophylaxis. CBC and hold pink tube ordered and drawn- pending. Objective - Vital Signs/Intake & Output Vital Signs: Vital Signs x48h Temp Pulse Resp BP Pulse Ox 02/17/18 11:24 36.3 C L 94 18 103/71 99 - Lab Results Other Labs: Lab Results x24hrs 02/17/18 02/17/18 Range/Units 11:35 11:30 Urine Color YELLOW Urine Clarity CLEAR (CLEAR) Urine pH 7.5 (5.0-7.5) PH Ur Specific [place] 1.015 (1.002-1.030) Urine Protein NEGATIVE (NEGATIVE) mg/dL Urine Glucose (UA) NEGATIVE (NEGATIVE) mg/dL Urine Ketones NEGATIVE (NEGATIVE) mg/dL Urine Occult Blood NEGATIVE (NEGATIVE) Urine Nitrite NEGATIVE (NEGATIVE) Urine Bilirubin NEGATIVE (NEGATIVE) Urine Urobilinogen 0.2 (NORMAL) (NORMAL) E.U./dL Ur Leukocyte Esterase NEGATIVE (NEGATIVE) Ur Microscopic Review NOT INDICATED Urine Culture Comments NOT INDICATED Membranes Rupture POSITIVE A (NEGATIVE)
[2018-02-17 12:25] LABS: BASOPHILS % (AUTO) 0.1 %; EOSINOPHILS # (AUTO) 0.1 10^3/uL (0.0-0.7); EOSINOPHILS % (AUTO) 0.6 %; HGB - HEMOGLOBIN 10.5 g/dL (12.0-16.0); LYMPHOCYTES % (AUTO) 14.3 %; MEAN CORPUSCULAR HEMOGLOBIN 29.4 pg (27.0-31.0); MEAN CORPUSCULAR HGB CONC 33.7 g/dL (32.0-36.0); MEAN CORPUSCULAR VOLUME 87.3 fL (81.0-99.0); MEAN PLATELET VOLUME 6.1 fL (7.9-10.8); MONOCYTES % (AUTO) 7.4 %; NEUTROPHILS # (AUTO) 10.8 10^3/uL (1.5-6.6); NEUTROPHILS % (AUTO) 77.6 %; PLT - PLATELET COUNT 461 10^3/uL (130-450); RED BLOOD COUNT 3.58 10^6/uL (4.20-5.40); RED CELL DISTRIBUTION WIDTH 13.6 % (12.0-15.0); WHITE BLOOD COUNT 13.9 x10^3/uL (4.8-10.8)
[2018-02-17 12:36] LABS: RBC MORPHOLOGY (MULTIPLE) 3+ ANISOCYTOSIS (NORMAL)
[2018-02-17] MEDS: MAGNESIUM SULFATE 2 GRAM 4 GM/100 ML BAG IV ONE ×2 (12:49→12:50)
[2018-02-17] MEDS ORDERED: MAGNESIUM SULFATE IV SCH (13:00)
[2018-02-17] MEDS ORDERED: LACTATED RINGERS IV SCH (13:00)
--- NOTE | 2018-02-17 13:12 | HISTORY & PHYSICAL EXAMINATION ---
Meds/Allgy - Allergies Allergies/Adverse Reactions: Allergies Allergy/AdvReac Type Severity Reaction Status Date / Time No Known Drug Allergies Allergy Verified 02/09/18 19:28 Exam - Vital Signs Vital Signs: Vital Signs x48h Temp Pulse Resp BP Pulse Ox 02/17/18 11:24 97.3 F L 94 18 103/71 99 Conclusion/Plan - Problem List (1) premature rupture of membranes (PPROM) with onset of labor after 24 hours of rupture in third trimester, antepartum Conclusion/Plan: 27 yo with a 31w0d IUP PPROM at 08:00 today Reassuring and maternal status (CVE 12/01/-3, no contractions. FHT's 150's and reactive). VTX S/p Beta-methasone at 30 weeks S/p pneumonia at 30 weeks Will transfer care to [facility], room 303 via Delmy Flores MD Continue MgSO4 EES and Amp Pending GBS H&P Dictated: [id number] - Lab Results Fish Bones: 02/17/18 12:09 Core Measures - Anticipated LOS I expect patient to be DC'd or transferred within 96 hours.: Yes
[2018-02-17] MEDS ORDERED: AMPICILLIN 500 MG in SODIUM CHLORIDE 0.9% MINIBAG 100 ML IV SCH (14:00)
[2018-02-17] MEDS ORDERED: SODIUM CHLORIDE 0.9% MINIBAG 100 ML IV ONE (14:02)
--- NOTE | 2018-02-17 14:17 | HISTORY & PHYSICAL EXAMINATION ---
DATE OF SERVICE: 02/17/2018 Physician: Candice Pires DO IDENTIFICATION: A 27-year-old G1, P0 with 31 and 7-week intrauterine . EDC is 04/21/2018 established by 9-week ultrasound. HISTORY OF PRESENT ILLNESS: She is a patient at 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 Patient has been getting consistent care with us. She transferred care to the midwives in her second trimester. Patient presented to [facility] today after noticing a loss of fluid at about 0800 hours. On examination, patient is indeed grossly ruptured. AROM Plus was performed to confirm this and this was positive. On digital examination, she is vertex with a cervical examination showing she is 1 cm dilated, 25% effaced, and -3 station. There are no contractions on tocometer. heart tones are in the 150s and reactive. There are no decelerations, and it is a category 1 tracing. Currently patient is on magnesium sulfate for neuro protection as well as ampicillin and erythromycin. Group B Streptococcus is currently pending. Patient was diagnosed with pneumonia last week at 30 weeks' gestation and was treated. She did get betamethasone at that point in time. PAST MEDICAL HISTORY: None. PAST SURGICAL HISTORY: None. ALLERGIES: NO KNOWN DRUG ALLERGIES. SOCIAL HISTORY: She denies any tobacco, alcohol, or illicit drug use. Patient is [place]ian, and the father of the baby is Chinedu. This is a male infant with anticipated name of Demetrius Guerin. [facility] in [facility] is her pharmacy of choice. PCP is DEAN Tucker. PAST OBSTETRICAL HISTORY: Patient started her care with us at 9 weeks ' gestation and later transferred to the certified nurse midwives for care. She has been having an uncomplicated with the exception of having pneumonia at 30 weeks' gestation. She was hospitalized for this and received steroids at that time. Otherwise, this has been unremarkable. PAST GYNECOLOGICAL HISTORY: She denies any abnormal Pap smears or sexually transmitted diseases. FAMILY HISTORY: She denies any female carcinoma. REVIEW OF SYSTEMS: Negative unless otherwise stated. She denies any nausea, vomiting, fevers, chills, diarrhea, constipation. She also denies any cough or shortness of breath. She does state the baby is moving well. Denies any vaginal bleeding. PHYSICAL EXAMINATION VITAL SIGNS: Temperature is 97.3, heart rate 94, blood pressure 103/71, respiratory rate 18, oxygen 99 percent on room air. GENERAL: Patient is a well-developed, well-nourished, Jordanian female in no apparent distress. She is alert and oriented x3. Patient is very pleasant and easy to speak to. HEENT: Within normal limits. HEART: Rate is regular. No murmurs or rubs. PULMONARY: Lungs are clear to auscultation bilaterally. ABDOMEN: Gravid, nontender. Fetus is vertex by Rene's. Most recent fundal height on 02/15/2018 is consistent with dates at 30 cm at 30 weeks' gestation. CARE: Laboratories reveal that she is B positive, HIV negative. Antibody screen is negative. RPR nonreactive, rubella immune, hepatitis B surface antigen nonreactive. On 09/13/2017, Pap smear is negative. Chlamydia and gonorrhea are both negative. anatomical survey is consistent with dates and within normal limits. Status post tetanus, diphtheria, and pertussis vaccination on 01/25/2018. ASSESSMENT 1. A 27-year-old G1, P0, with a 31 and 0/7-week intrauterine . 2. premature rupture of membranes. 3. Cephalic presentation. 4. No current signs of chorioamnionitis. 5. Status post betamethasone series at 30 weeks' gestation secondary to pneumonia, which is resolved. PLAN 1. I have spoken to Delmy Flores MD, at [facility], who is graciously accepted transfer of care of this patient. She will go to [facility] to room 303. 2. We will continue magnesium sulfate for neuro protection as well as antibiotics, specifically ampicillin and erythromycin, for chorioamnionitis prophylaxis. 3. Pending results of a rapid GBS testing today. TD: 02/17/2018 14:15 DANNY
[2018-02-17] MEDS ORDERED: ERYTHROMYCIN LACTOBIONATE INJ 500 MG in SODIUM CHLORIDE 0.9% 250 ML IV SCH (18:00)
== END 2018-02-17 14:53 | disposition home or self-care (01) | DRG 782 ==
LOC: WFO 11:14 → FBP 11:15 → WFO 11:44 → FBP 11:44 → UNDOADMIN 11:58 → FBP 11:58 → WFO 14:53 → FBP 14:53
PROVIDERS: ADMIT Obstetrics & Gynecology; ATTEND Nurse Practitioner Obstetrics & Gynecology
DX: O42.113 Preterm premature rupture of membranes, onset of labor more than 24 hours following rupture, third trimester (principal); Z3A.31 31 weeks gestation of pregnancy; Z87.01 Personal history of pneumonia (recurrent)
CPT/HCPCS: 81001; 81003; 84112; 85025; 87086; 87797; 99215

== ENCOUNTER 2018-02-17 14:58 | Outpatient (CLI) | payer MEDICAID | END 2018-02-17 14:59 | disposition short-term general hospital (02) | LOC: EMS 14:58 | PROVIDERS: ATTEND Surgery | DX: O42.913 Preterm premature rupture of membranes, unspecified as to length of time between rupture and onset of labor, third trimester (principal); Z3A.30 30 weeks gestation of pregnancy | CPT/HCPCS: A0425; A0426 ==

== ENCOUNTER 2018-10-02 11:10 | Outpatient (CLI) | payer MEDICAID ==
[2018-10-02 18:55] LABS: BILIRUBIN,URINE NEGATIVE (NEGATIVE); GLUCOSE, URINE (UA) NEGATIVE (NEGATIVE); KETONES,URINE (UA) NEGATIVE (NEGATIVE); LEUKOCYTE ESTERASE, URINE MODERATE (NEGATIVE); NITRITE,URINE NEGATIVE (NEGATIVE); OCCULT BLOOD,URINE SMALL (NEGATIVE); PH,URINE 6.5 PH (5.0-7.5); PROTEIN,URINE NEGATIVE (NEGATIVE); UROBILINOGEN,URINE 0.2 (NORMAL) E.U./dL (NORMAL)
[2018-10-02 19:15] LABS: BACTERIA,URINE None Seen /HPF (None Seen); CLARITY,URINE CLEAR (CLEAR); SQUAMOUS EPITHELIAL CELL,UR MOD Squamous (<= Few); WBC CLUMPS,URINE PRESENT
== END 2018-10-02 23:59 | disposition home or self-care (01) ==
LOC: LAB.R 11:10
PROVIDERS: ATTEND Nurse Practitioner
DX: R30.0 Dysuria (principal)
CPT/HCPCS: 81001; 87086

== ENCOUNTER 2019-06-13 14:24 | Outpatient (CLI) | payer MEDICAID ==
--- NOTE | 2019-06-15 08:25 | Ultrasound Report ---
Reason: TEST POSITIVE Procedure Date: 06/13/2019 Accession Number: [id number] / [id number] Procedure: US - OB First Trimester CPT Code: FULL RESULT: EXAM: FIRST TRIMESTER OBSTETRIC ULTRASOUND (Less than 11 weeks) EXAM DATE: 06/13/2019 05:36 PM. CLINICAL HISTORY: test positive. LMP: 04/28/2019. COMPARISONS: None. TECHNIQUE: Transabdominal and transvaginal ultrasound examination with static image documentation. CLINICAL DATES: EGA 6 weeks 4 days with CLOVIS 02/02/2020 based on LMP. ASSESSMENT: Gestational Sac: Single intrauterine. Mean gestational sac diameter: 23 mm = 7 weeks 2 days. Embryo: CRL (crown-rump length) 7 mm = 6 weeks 4 days. Cardiac activity: 134 beats per minute. Yolk sac: 3 mm. Amniotic fluid: Not accurately assessed at this gestational age. Early placenta: Not visible at this gestational age. Other: 3.9 x 0.7 x 0.6 cm perigestational fluid collection in the lateral/inferior region. Superior 1.6 x 0.8 x 1.2 cm perigestational fluid collection. MATERNAL STRUCTURES: Uterus: Retroverted. Unremarkable. Cervix: Closed. Right Ovary/Adnexa: The ovary measures 3.8 x 1.9 x 3.1 cm, volume 11.7 cc. Unremarkable apart from a 2.0 cm presumed corpus luteum. Left Ovary/Adnexa: The ovary measures 2.8 x 2.1 x 2.2 cm, volume 6.8 cc. Unremarkable. Free Fluid: Small amount. Other: None. IMPRESSION: 1. Single viable intrauterine at EGA 6 weeks 4 days with CLOVIS 02/02/2020 based on crown-rump length, which is concordant with clinical dates. 2. Assigned dating is CLOVIS 02/02/2020 based on LMP. 3. Two perigestational fluid collections, consistent with hemorrhage, measuring up to 3.9 and 1.7 cm each. 4. Small amount of free pelvic fluid. RADIA
== END 2019-06-13 14:25 | disposition home or self-care (01) ==
LOC: DI 14:24
PROVIDERS: ATTEND Obstetrics & Gynecology
DX: Z32.01 Encounter for pregnancy test, result positive (principal); O28.9 Unspecified abnormal findings on antenatal screening of mother; Z3A.01 Less than 8 weeks gestation of pregnancy
CPT/HCPCS: 76801

== ENCOUNTER 2019-07-05 08:00 | Outpatient (CLI) | payer MEDICAID ==
[2019-07-05 14:31] LABS: MUDS CUTOFF CONCENTRATIONS CUTOFF CONC BELOW:
[2019-07-05 14:40] LABS: BILIRUBIN,URINE NEGATIVE (NEGATIVE); GLUCOSE, URINE (UA) NEGATIVE (NEGATIVE); KETONES,URINE (UA) NEGATIVE (NEGATIVE); LEUKOCYTE ESTERASE, URINE NEGATIVE (NEGATIVE); NITRITE,URINE NEGATIVE (NEGATIVE); OCCULT BLOOD,URINE NEGATIVE (NEGATIVE); PROTEIN,URINE NEGATIVE (NEGATIVE); UROBILINOGEN,URINE 0.2 (NORMAL) E.U./dL (NORMAL)
[2019-07-05 14:51] LABS: BACTERIA,URINE None Seen /HPF (None Seen); CLARITY,URINE CLEAR (CLEAR); RBC,URINE None Seen /HPF (0-5); SQUAMOUS EPITHELIAL CELL,UR NONE SEEN (<= Few)
[2019-07-05 14:52] LABS: AMPHETAMINE SCREEN,URINE NEGATIVE (NEGATIVE); BENZODIAZEPINES SCREEN, URINE NEGATIVE (NEGATIVE); COCAINE SCREEN URINE NEGATIVE (NEGATIVE); METHADONE SCREEN, URINE NEGATIVE (NEGATIVE); METHAMPHETAMINES SCREEN, URINE NEGATIVE (NEGATIVE); OPIATE SCREEN, URINE NEGATIVE (NEGATIVE); OXYCODONE SCREEN, URINE NEGATIVE (NEGATIVE); PROPOXYPHENE SCREEN, URINE NEGATIVE (NEGATIVE); TRICYCLIC ANTIDEPRESSANT,URINE NEGATIVE (NEGATIVE)
[2019-07-05 21:37] LABS: TRICHOMONAS VAGINALIS DNA NEGATIVE (NEGATIVE)
== END 2019-07-05 23:59 | disposition home or self-care (01) ==
LOC: LAB.R 08:00
PROVIDERS: ATTEND Obstetrics & Gynecology
DX: Z36.89 Encounter for other specified antenatal screening (principal)
CPT/HCPCS: 80306; 81001; 87086; 87491; 87591; 87661

== ENCOUNTER 2019-07-05 10:52 | Outpatient (CLI) | payer MEDICAID ==
[2019-07-05 11:31] LABS: BASOPHILS % (AUTO) 0.5 %; EOSINOPHILS % (AUTO) 0.1 %; HGB - HEMOGLOBIN 12.7 g/dL (12.0-16.0); LYMPHOCYTES # (AUTO) 2.4 10^3/uL (1.5-3.5); LYMPHOCYTES % (AUTO) 28.2 %; MEAN CORPUSCULAR HEMOGLOBIN 28.5 pg (27.0-31.0); MEAN CORPUSCULAR HGB CONC 33.3 g/dL (32.0-36.0); MEAN CORPUSCULAR VOLUME 85.4 fL (81.0-99.0); MEAN PLATELET VOLUME 8.8 fL (7.9-10.8); MONOCYTES # (AUTO) 0.6 10^3/uL (0.0-1.0); NEUTROPHILS # (AUTO) 5.3 10^3/uL (1.5-6.6); NEUTROPHILS % (AUTO) 63.7 %; PLT - PLATELET COUNT 335 10^3/uL (130-450); RED BLOOD COUNT 4.46 10^6/uL (4.20-5.40); RED CELL DISTRIBUTION WIDTH 12.3 % (12.0-15.0); WHITE BLOOD COUNT 8.3 x10^3/uL (4.8-10.8)
[2019-07-06 10:41] LABS: HIV AG/AB 4TH GEN NON-REACTIVE (NON-REACTIVE)
[2019-07-06 11:24] LABS: HEPATITIS C ANTIBODY NON-REACTIVE (NON-REACTIVE)
[2019-07-06 16:01] LABS: HEPATITIS B SURFACE ANTIGEN NON-REACTIVE (NON-REACTIVE)
== END 2019-07-05 10:53 | disposition home or self-care (01) ==
LOC: LAB 10:52
PROVIDERS: ATTEND Obstetrics & Gynecology
DX: Z36.89 Encounter for other specified antenatal screening (principal)
CPT/HCPCS: 36415; 80306; 81001; 81599; 85025; 86762; 86803; 86850; 86900; 86901; 87340; 87389; 87491; 87591; 87661

== ENCOUNTER 2019-07-27 08:00 | Outpatient (CLI) | payer MEDICAID | END 2019-07-27 23:59 | disposition home or self-care (01) | LOC: LAB.R 08:00 | PROVIDERS: ATTEND Obstetrics & Gynecology | DX: N39.0 Urinary tract infection, site not specified (principal) | CPT/HCPCS: 87086 ==

== ENCOUNTER 2019-09-14 10:05 | Outpatient (CLI) | payer MEDICAID ==
--- NOTE | 2019-09-17 03:24 | Ultrasound Report ---
Reason: SCREENING Procedure Date: 09/14/2019 Accession Number: [id number] / [id number] Procedure: US - OB Detailed Eval CPT Code: Final Report FULL RESULT: EXAM: COMPLETE OBSTETRICAL ULTRASOUND EXAM DATE: 09/14/2019 12:30 PM. CLINICAL HISTORY: anatomic survey. COMPARISON: 06/13/2019. TECHNIQUE: Real-time sonographic evaluation of the fetus performed by the taxi driver. Multiple fulfillment representative static images were saved for review. Additional transvaginal imaging to more accurately evaluate cervical length/placental position/etc. DATING: Established EGA 20 weeks 2 days with CLOVIS 01/30/2020 based on LMP. EGA 20 weeks 2 days with CLOVIS 01/30/2020 based on first ultrasound. EGA 19 weeks 5 days with CLOVIS 02/03/2020 based on the current ultrasound. GENERAL EVALUATION Hoyt . Cardiac activity: 153 bpm. movement: Visualized. Presentation: Cephalic. Placenta: Posterior position. No evidence for previa. Umbilical cord: 3 vessel cord. Central placental cord origin. Amniotic fluid: Subjectively normal. MVP 2.4 cm. BIOMETRY Bi-Parietal Diameter (BPD): 4.4 cm, 19 weeks 3 days Head Circumference (HC): 17.3 cm, 19 weeks 6 days Abdominal Circumference (AC): 14.4 cm, 19 weeks 5 days Femur Length (FL): 3.1 cm, 19 weeks 4 days Estimated Weight: 305 g, 15.8 percentile for 20 weeks 2 days. ANATOMY The intracranial structures, profile, face/nose/lips, spine, 4 chamber heart and outflow tracts, stomach, abdominal wall and cord insertion, diaphragm, kidneys, bladder, and extremities were visualized and demonstrate no abnormality. MATERNAL STRUCTURES Uterus: Unremarkable. Cervix: Long and closed. Transabdominal length 5.5 cm. Right ovary/adnexa: Unremarkable. Left ovary/adnexa: Unremarkable. Free fluid: None. IMPRESSION: 1. Hoyt live intrauterine with gestational age 20 weeks 2 days based on LMP. 2. Estimated weight is within expected limits for assigned dating. 3. Normal anatomic survey. No anatomic abnormalities are detected at this time. RADIA
== END 2019-09-14 10:06 | disposition home or self-care (01) ==
LOC: DI 10:05
PROVIDERS: ATTEND Obstetrics & Gynecology
DX: Z36.89 Encounter for other specified antenatal screening (principal)
CPT/HCPCS: 76811

== ENCOUNTER 2019-11-09 12:54 | Outpatient (CLI) | payer MEDICAID ==
[2019-11-09 14:14] LABS: HGB - HEMOGLOBIN 10.7 g/dL (12.0-16.0); MEAN CORPUSCULAR HEMOGLOBIN 30.6 pg (27.0-31.0); MEAN CORPUSCULAR HGB CONC 33.1 g/dL (32.0-36.0); MEAN CORPUSCULAR VOLUME 92.3 fL (81.0-99.0); RED BLOOD COUNT 3.5 10^6/uL (4.20-5.40); WHITE BLOOD COUNT 9.3 x10^3/uL (4.8-10.8)
== END 2019-11-09 12:55 | disposition home or self-care (01) ==
LOC: LAB 12:54
PROVIDERS: ATTEND Obstetrics & Gynecology
DX: Z36.89 Encounter for other specified antenatal screening (principal)
CPT/HCPCS: 36415; 82950; 85027

== ENCOUNTER 2020-01-10 08:00 | Outpatient (CLI) | payer MEDICAID ==
[2020-01-11 21:11] LABS: TRICHOMONAS VAGINALIS DNA NEGATIVE (NEGATIVE)
== END 2020-01-10 23:59 | disposition home or self-care (01) ==
LOC: LAB.R 08:00
PROVIDERS: ATTEND Obstetrics & Gynecology
DX: Z36.85 Encounter for antenatal screening for Streptococcus B (principal)
CPT/HCPCS: 87491; 87591; 87661; 87797

== ENCOUNTER 2020-01-28 21:50 | Inpatient (IN) | payer MEDICAID ==
[2020-01-29] MEDS ORDERED: SODIUM CHLORIDE FLUSH 0.9% 10 ML SYRINGE IVP PRN (00:20)
[2020-01-29 00:40] LABS: BASOPHILS # (AUTO) 0.1 10^3/uL (0.0-0.1); BASOPHILS % (AUTO) 0.4 %; EOSINOPHILS # (AUTO) 0.1 10^3/uL (0.0-0.7); EOSINOPHILS % (AUTO) 0.4 %; HGB - HEMOGLOBIN 11.6 g/dL (12.0-16.0); LYMPHOCYTES # (AUTO) 2.7 10^3/uL (1.5-3.5); MEAN CORPUSCULAR HEMOGLOBIN 30.1 pg (27.0-31.0); MEAN CORPUSCULAR HGB CONC 33.1 g/dL (32.0-36.0); MEAN CORPUSCULAR VOLUME 90.7 fL (81.0-99.0); MEAN PLATELET VOLUME 9.5 fL (7.9-10.8); MONOCYTES % (AUTO) 6.3 %; NEUTROPHILS # (AUTO) 11.7 10^3/uL (1.5-6.6); NEUTROPHILS % (AUTO) 73.3 %; PLT - PLATELET COUNT 234 10^3/uL (130-450); RED BLOOD COUNT 3.86 10^6/uL (4.20-5.40); RED CELL DISTRIBUTION WIDTH 13.4 % (12.0-15.0)
[2020-01-29] MEDS ORDERED: OXYTOCIN/SODIUM CHLORIDE 500 ML IV ONE (00:56)
[2020-01-29] MEDS ORDERED: SODIUM CHLORIDE FLUSH 0.9% 10 ML SYRINGE IVP SCH (01:00)
--- NOTE | 2020-01-29 01:41 | HISTORY & PHYSICAL EXAMINATION ---
Admit History - : 2 Parity: 1 Premature: 1 Care: positive: [facility] Risk/History: positive: labor <37 weeks Complications This : positive: None Smoking Status: Never smoker - Other Maternal History Other Maternal History: Gladys is a 29-year-old G2, P1 at 39 weeks 3 days by CLOVIS of 02/02/2020 by LMP and 6-week ultrasound Presented to triage wiht painful cotnractiosn and was 1 cm dilated. She walked for 90 minutes. SVE on return was 5 c/C/BBOW. She was admitted for labor. No lOF/VB. Endorses FM. Prior complicated by delivery after PPROM at 30 weeks. Had 4 weeks of bedrest and baby delivered at 34 weeks at [facility]. Has been treated for depression since time of prior delivery on sertraline 50 mg p.o. daily. No history of HSV or STIs. Last Pap 06/30/2017; NILM B+/Rub imm Declined genetic testing Influenza 09/20/19 FAS posterior placenta, 15%ile growth, nl anatomy, normal fluid, CL 5.5cm Glucola 132 HCT 32.2- on iron TDaP complete Breast pump RX: given HSV: denies GBS: today Anticipate Desires IUD to be palced in period Meds/Allgy - Allergies Allergies/Adverse Reactions: Allergies Allergy/AdvReac Type Severity Reaction Status Date / Time No Known Drug Allergies Allergy Verified 02/09/18 19:28 Review of Systems - Other Findings Other Findings: As per HPI otherwise remaining systems are negative. Physical - Abdominal Exam Vital Signs: Temp Pulse Resp BP Pulse Ox 97.8 F 105 H 15 119/74 99 01/28/20 22:00 01/28/20 22:00 01/28/20 22:00 01/28/20 22:00 01/28/20 22:00 Contraction Frequency (min/apart): Q 3 min Contraction Intensity: positive: Mild to moderate - Monitoring Heart Rate Baseline: 130 mod fahad 15x15 accels no decels Strip Review: positive: Category I - Presentation Presentation: positive: Vertex - Vaginal Exam Membranes: positive: Membranes intact Dilation (in cm): 5 Effacement (%): 90 Station: positive: 0 Cervical Position: positive: Posterior - Other Notes Labor Progress Note/Additional Text: Patient is laboring without analgesia Agreed to AROM SVE /-1/posterior Rutpured with clear fluid Plan for Labor - Plan For Labor Plan for Labor: 29 yo at 39w3d here in labor LABOR: Underwent AROM shortly after admission -Expectant management -Pitocin as indicated for augmentation FWB: vertex, cat I tracing, GBS neg, appropriately grown PAIN: Epidural per pt request Not a candidate for fentanyl Nitrous oxide not offered during COVID-19 pandemic Anticipate
[2020-01-29] MEDS ORDERED: LIDOCAINE-MPF 1% 30 ML VIAL ONE (02:24)
[2020-01-29] MEDS ORDERED: ROPIVACAINE 0.2% 200 MG/100 ML BAG EP ONE (03:03)
[2020-01-29] MEDS: LACTATED RINGERS 1,000 ML IV SCH ×2 (03:15→04:21)
--- NOTE | 2020-01-29 04:39 | PROVIDER PROGRESS NOTE ---
Labor Progress Note - Uterine Monitoring Contraction Frequency (min/apart): Q4-5 Contraction Intensity: positive: Moderate to strong - Monitoring Monitor Mode: positive: External ultrasound Heart Rate Baseline: 130 Heart Rate Variability: positive: Moderate (6-25 bmp) Accelerations: positive: Present, 15x15 Decelerations: positive: Recurrent (>50% x20 min), Intermittent (<50% x20 min) Strip Review: positive: Category II - Vaginal Exam Dilation (in cm): 7-8 Effacement (%): 90 Station: 0 Cervical Position: Posterior - Labor Progress Note Labor Progress Note/Additional Text: Called to patient bedside for intermittent variables. Seem to start before onset of contraction Moderate variability with accels between contractions Patient with poor tolerance of labor FSE placed to better assess heart rate with maternal activity Decel to the 60s while side-positioned for epidural placement Recovered with position change. Epidural placed EFM 130s mod fahad 15x15 accels no decels TOCO: Q5-6 Unable to tolerate assessment of position Suspect OP Will let patient rest and then reassess for position and possible manual rotation
[2020-01-29] MEDS ORDERED: NALOXONE 0.4 MG/ML VIAL IVP PRN (04:47)
[2020-01-29] MEDS ORDERED: ONDANSETRON 4 MG/2 ML VIAL IVP PRN (04:47)
[2020-01-29] MEDS ORDERED: ROPIVACAINE 0.2% 200 MG/100 ML BAG EP PRN (04:47)
[2020-01-29] MEDS ORDERED: diphenhydrAMINE INJ 50 MG/ML VIAL IVP PRN (04:47)
[2020-01-29] MEDS ORDERED: METOCLOPRAMIDE 10 MG/2 ML VIAL IVP PRN (04:47)
[2020-01-29] MEDS ORDERED: ePHEDrine 50 MG/ML VIAL IVP PRN (04:47)
[2020-01-29] MEDS ORDERED: LACTATED RINGERS 500 ML IV ONE (04:47)
[2020-01-29] MEDS ORDERED: NALBUPHINE 10 MG/ML AMP IVP PRN (04:47)
--- NOTE | 2020-01-29 04:50 | ANESTHESIA ---
Pre-Anesthesia VS, & Labs - Diagnosis active labor - Procedure labor epidural Vital Signs: Temp Pulse Resp BP Pulse Ox 36.6 C 105 H 15 119/74 99 01/28/20 22:00 01/28/20 22:00 01/28/20 22:00 01/28/20 22:00 01/28/20 22:00 Height 5 ft 3 in Weight (kg) 73.936 kg Body Mass Index 21.2 - Is Patient ?: Yes - Lab Results Current Lab Results: Laboratory Tests 01/29/20 00:25: WBC 16.0 H, RBC 3.86 L, Hgb 11.6 L, Hct 35.0 L, MCV 90.7, MCH 30.1, MCHC 33.1, RDW 13.4, Plt Count 234, MPV 9.5, Neut # (Auto) 11.7 H, Lymph # (Auto) 2.7, [place] # (Auto) 1.0, Eos # (Auto) 0.1, Baso # (Auto) 0.1, Absolute Nucleated RBC 0.00, Nucleated RBC % 0.0 Fish Bones: 01/29/20 00:25 Home Medications and Allergies Active Medications Lactated Ringer's (Lr) 1,000 mls @ 150 mls/hr IV .Q6H40M [facility] Last Admin: 01/29/20 04:21 Dose: 125 mls/hr Sodium Chloride (Normal Saline Flush 0.9%) 10 ml IVP PRN PRN PRN Reason: NEEDED PER PROVIDER ORDERS Sodium Chloride (Normal Saline Flush 0.9%) 10 ml IVP 0100,0900,1700 [facility] Allergies/Adverse Reactions: Allergies Allergy/AdvReac Type Severity Reaction Status Date / Time No Known Drug Allergies Allergy Verified 02/09/18 19:28 Anes History & Medical History - Anesthetic History Anesthesia Complications: reports: No previous complications - Medical History Smoking Status: Never smoker - Obstetrical History : 2 Parity: 1 Events: positive: labor <37 weeks Complications: positive: None Exam General: Alert Dental: WNL Mouth Opening: Greater than 4 Fingerbreadths Neck Mobility: Normal Mallampati classification: II Thyromental Distance: greater than 6 cm Respiratory: Lungs clear Cardiovascular: Regular rate Plan Anesthesia Type: Epidural Consent for Procedure(s) Verified and Reviewed: Yes Code Status: Attempt Resuscitation ASA classification: 2-Mild systemic disease Is this case an emergency?: No
[2020-01-29] MEDS ORDERED: OXYTOCIN/SODIUM CHLORIDE 500 ML IV SCH (05:10)
[2020-01-29] MEDS ORDERED: METHYLERGONOVINE 0.2 MG/ML VIAL ONE (05:27)
[2020-01-29] MEDS ORDERED: miSOPROStoL 200 MCG TABLET ONE (05:28)
[2020-01-29] MEDS ORDERED: miSOPROStoL 200 MCG TABLET BC ONE (05:34)
[2020-01-29] MEDS ORDERED: fentaNYL 100 MCG/2 ML VIAL IVP SCH (05:41)
--- NOTE | 2020-01-29 05:53 | DELIVERY NOTE ---
Delivery Note - Infant Delivery Method Infant Delivery Method: positive: Vacuum assist - Presentation Presentation: positive: Vertex - Nuchal Cord Nuchal Cord: positive: Present, Reduced - Anesthetic Anesthetic Type: - Amniotic Fluid Description Amniotic Fluid Description: positive: Clear - Vacuum Use Indication for Vacuum Use: positive: Suspicion of immediate or potential compromise Type of Vacuum Cup: positive: Cup: Rigid Vacuum Extraction: positive: Successful Number of pop-offs: 1 - Episiotomy Type Episiotomy Type: positive: None - Laceration Laceration: positive: None - Delivery Outcome Delivery Outcome: positive: Livebirth - [place]: positive: Warmer used sex: positive: Male - Cord Cord: positive: 3 vessels - Placenta Placenta: positive: Intact, Expressed - Estimated Blood Loss Estimated Blood Loss (in cc): 200 - Post Delivery Events Post Delivery Events: positive: Shoulder dystocia - Delivery Comments (Free Text/Narrative) Delivery Comments (Free Text/Narrative): Patient is a 29 yo who presented in labor STAGE I: Gladys is a 29-year-old G2, P1 at 39 weeks 3 days by CLOVIS of 02/02/2020 by LMP and 6-week ultrasound. Initial SVE was 1 cm dilation. She walked for 90 minutes and was 5/90/BBOW. She was admitted and underwent artificial rupture of membranes notable for passage of clear fluid. She received and epidural for pain management. GBS negative and prophylaxis was not indicated. EFM was category I for most of Stage I with intermittent periods of Category II due to recurrent variable decelerations with immediate return to moderate variability. Patient was complete at 4:50 am. STAGE II: Patient started pushing, with immediate bedside coaching at 4:52 am. Due to maternal exhaustion and persistent bradycardia, the decision was made to proceed with vacuum assistance. Bladder was drained with in and out catheterization at 5:01. Second stage pitocin was started to max dose of 1 mU/min. a Kiwi vacuum was applied and the head was pulled to the introitus with one extended pull and one popoff. Duration of vacuum application was 4 minutes in duration. Patient continued to push the infant to delivery without further assistance. head delivered at 5:18. Nuchal cord was present and easily reduced. Delivery of the head was followed with a two minute shoulder dystocia relieved with a combination of Tony maneuver, suprapubic pressure, and delivery of the posterior arm. Cord was clamped x2 and cut and was immediately handed off to the pediatric team. Weight pending. Apgars 6/8/10. Cord gases were collected. A: 7.133/63.4/20.4/20.8/22.7/-9.5 V: 7.175/51.5/29.3/18.6/20.2/-10.2 STAGE III: Placenta delivered with manual expression. It was examined and found to be intact. The perineum was examined and was intact. She was given 600 mcg of misoprostol BC as a preventive measure. Total EBL 200 cc.
[2020-01-29] MEDS ORDERED: ONDANSETRON ODT 4 MG TABLET TL PRN (06:24)
[2020-01-29] MEDS ORDERED: HYDROCORTISONE 1% CREAM 28 GM TUBE PR PRN (06:24)
[2020-01-29] MEDS ORDERED: SIMETHICONE CHEW 80 MG TABLET PO PRN (06:24)
[2020-01-29] MEDS ORDERED: LACTATED RINGERS 1,000 ML IV SCH (07:00)
[2020-01-29] MEDS: IBUPROFEN 600 MG TABLET PO SCH ×3 (07:59→21:11)
[2020-01-29] MEDS: DOCUSATE SODIUM 100 MG CAPSULE PO PRN ×2 (07:59→21:12)
[2020-01-29] MEDS: ACETAMINOPHEN 500 MG TABLET PO SCH ×2 (08:00→21:11)
--- NOTE | 2020-01-30 08:00 | Discharge Plan ---
Discharge Plan Problem Reviewed?: Yes Disposition: Home, Self Care Condition: Good Diet: Regular Activity Restrictions: Nothing in the vagina for 6 weeks: No intercourse, tampons, douching Shower Restrictions: No Driving Restrictions: No Weight Bearing: Full Weight Additional Instructions or Follow Up instructions: Follow-up with Kaylene in 6 weeks. No Smoking: If you smoke, Please STOP! Call for help. Follow-up with: MARY LOU SAUCEDA MD, PHD [Physician No Access] -
[2020-01-30] MEDS: ACETAMINOPHEN 500 MG TABLET PO SCH (08:47)
[2020-01-30] MEDS: DOCUSATE SODIUM 100 MG CAPSULE PO PRN (08:48)
[2020-01-30] MEDS: IBUPROFEN 600 MG TABLET PO SCH (08:48)
[2020-01-30 09:39] VITALS: BP 117/73
--- NOTE | 2020-01-30 11:39 | PROVIDER PROGRESS NOTE ---
Subjective - Prog Note Date Prog Note Date: 01/30/20 Prog Note Time: 08:00 - Subjective Subjective: Patient is up and ambulating, tolerating po, and voiding. Pain is well managed with pain medications. Minimal lochia. Breast-feeding going well. Doing well desires discharge to home. Objective - Vital Signs/Intake & Output Vital Signs: Vital Signs x48h Temp Pulse Resp BP Pulse Ox 01/30/20 09:38 98.2 F 82 16 117/73 99 01/30/20 04:09 97.7 F 75 18 99/78 99 Intake & Output: Intake & Output 01/27/20 01/28/20 01/29/20 01/30/20 23:59 23:59 23:59 23:59 Intake Total 2995 Output Total 2010 Balance 985 - Objective General Appearance: positive: No acute distress Neck: positive: Nml inspection Respiratory: positive: Chest non-tender Cardiovascular: positive: Regular rate & rhythm Abdomen: positive: Non-tender, Other (Fundus firm below the umbilicus) Skin: positive: Color nml Extremities: positive: Non-tender, No pedal edema - Lab Results Fish Bones: 01/29/20 00:25 Assessment/Plan - Problem List (1) Vaginal delivery Impression: Vaginal delivery complicated by shoulder dystocia Patient is doing well in the . Meeting goals for discharge and desires discharge to home. Routine discharge instructions given. Rh+ and rubella immune. Discharge to home.
--- NOTE | 2020-01-30 11:41 | DISCHARGE SUMMARY ---
Discharge Summary Admit Date: 01/29/20 (Admitted just after midnight. Had assessment immediately prior to admit on 01/28/20) Discharge Date: 01/30/20 Discharging Provider: Kaylene Code Status: Attempt Resuscitation Condition at Discharge: Good Discharge Disposition: 01 Home, Self Care Discharge Facility Name: [facility] - DIAGNOSES Admission Diagnoses: IUP at 39w3d Labor at term Discharge Diagnoses with Status of Each Condition: Same and delivery of term gestation with vacuum assisted vaginal delivery Shoulder dystocia, 2 min duration - HPI History of Present Illness: Gladys is a 29-year-old G2, P1 at 39 weeks 3 days by [facility] of 02/02/2020 by LMP and 6-week ultrasound Presented to triage wi painful cotnractiosn and was 1 cm dilated. She walked for 90 minutes. SVE on return was 5 C/C/BBOW. She was admitted for labor. No lOF/VB. Endorses FM. Prior complicated by delivery after PPROM at 30 weeks. Had 4 weeks of bedrest and baby delivered at 34 weeks at [facility]. Has been treated for depression since time of prior delivery on sertraline 50 mg p.o. daily. No history of HSV or STIs. Last Pap 06/30/2017; NILM B+/Rub imm Declined genetic testing Influenza 09/20/19 FAS posterior placenta, 15%ile growth, nl anatomy, normal fluid, CL 5.5cm Glucola 132 HCT 32.2- on iron TDaP complete Breast pump RX: given HSV: denies GBS: today Anticipate Desires IUD to be placed in period - HOSPITAL COURSE Hospital Course: STAGE I: Gladys is a 29-year-old G2, P1 at 39 weeks 3 days by [facility] of 02/02/2020 by LMP and 6-week ultrasound. Initial SVE was 1 cm dilation. She walked for 90 minutes and was 5/90/BBOW. She was admitted and underwent artificial rupture of membranes notable for passage of clear fluid. She received and epidural for pain management. GBS negative and prophylaxis was not indicated. EFM was category I for most of Stage I with intermittent periods of Category II due to recurrent variable decelerations with immediate return to moderate variability. Patient was complete at 4:50 am. STAGE II: Patient started pushing, with immediate bedside coaching at 4:52 am. Due to maternal exhaustion and persistent bradycardia, the decision was made to proceed with vacuum assistance. Bladder was drained with in and out catheterization at 5:01. Second stage pitocin was started to max dose of 1 mU/min. a Kiwi vacuum was applied and the head was pulled to the introitus with one extended pull and one popoff. Duration of vacuum application was 4 minutes in duration. Patient continued to push the infant to delivery without further assistance. head delivered at 5:18. Nuchal cord was present and easily reduced. Delivery of the head was followed with a two minute shoulder dystocia relieved with a combination of Tony maneuver, suprapubic pressure, and delivery of the posterior arm. Cord was clamped x2 and cut and infant was immediately handed off to the pediatric team. Weight 3138g. Apgars 6/8/10. Cord gases were collected. A: 7.133/63.4/20.4/20.8/22.7/-9.5 V: 7.175/51.5/29.3/18.6/20.2/-10.2 STAGE III: Placenta delivered with manual expression. It was examined and found to be intact. The perineum was examined and was intact. She was given 600 mcg of misoprostol BC as a preventive measure. Total EBL 200 cc. course was uncomplicated. Baby is breast-feeding well. By day #1, patient was meeting goals for discharge and desired discharge home. Discharged home with prescription for docusate 100 mg p.o. twice daily PRN constipation. Declined prescriptions for ibuprofen and acetaminophen as home [id number] medications are available to her. - ALLERGIES Allergies/Adverse Reactions: Allergies Allergy/AdvReac Type Severity Reaction Status Date / Time No Known Drug Allergies Allergy Verified 02/09/18 19:28 - LABS Result Diagrams: 01/29/20 00:25 - FOLLOW UP Follow Up: 6 weeks with Kaylene - TIME SPENT Time Spent in Discharge (Minutes): 30
--- NOTE | 2020-01-30 14:08 | Labor Flowsheet ---
Labor Flowsheet Datetime Report Generated by CPN: 01/30/2020 14:08 Datetime: 01/29/2020 05:40 Temperature (C): 36.6 Temperature Route: Oral Datetime: 01/29/2020 05:22 Stage of : Recovery Respirations: 20 Datetime: 01/29/2020 05:18 ASSESSMENT A Monitor Mode: External US FHR Baseline Rate : 110 FHR Baseline Changes: Bradycardia Variability: Marked >25 bpm Decelerations: Variable; Prolonged Category: Category II Datetime: 01/29/2020 05:13 STAGE 2 Pushing: Coached on Pushing Datetime: 01/29/2020 05:10 Accelerations: 15X15 MEDICATIONS Pitocin (milliunits): Started @ 1 Vacuum: Pop Off Station Vacuum/Forceps Applied: 2 LaborFlag: Labor Datetime: 01/29/2020 05:08 Pushing Position: Pushing Lithotomy Pushing Progress: Descent with Pushing; Pushing Effectively with Contractions; Ineffective Pushing (Annotations: Pt pushing with contractions as MD using vacuum. Descent obtained even tho pt. not f ocused/pushing well at times, with intense coaching.) Datetime: 01/29/2020 05:00 UTERINE ACTIVITY Monitor Mode: External Frequency (min): 2-4 Quality: Strong Duration (sec): 90-120 Pattern: Normal: <= 5 Contractions in 10 Minutes Resting Tone (Palpate): Relaxed Contraction Comments: pushing fair with contractions, difficulty maintaining pushes due to fatigue Oxygen Amount (LPM): 10 Oxygen Method: Face Mask Datetime: 01/29/2020 04:56 Patient Care Comments: pushing in lithotomy Datetime: 01/29/2020 04:55 COMMUNICATION Communication: Call/Page Placed to Provider Communication Comments: Peds called Datetime: 01/29/2020 04:50 VAGINAL EXAM Dilatation (cm): 10.0 Exam by: Dr. Maurice Datetime: 01/29/2020 04:30 Comments: variables to 90-100, with baseline decrease to 110's Datetime: 01/29/2020 04:04 Epidural Procedure Other: Pump Started Datetime: 01/29/2020 03:55 Epidural Procedure: Test Dose Anesthesia Comments: 5cc Datetime: 01/29/2020 03:50 Epidural Positioning: Sitting Datetime: 01/29/2020 03:32 ANESTHESIA Anesthesia Plans: Epidural Anesthesia Interview: E Datetime: 01/29/2020 03:20 Actions for Decelerations: Hands and Knees; Oxygen Applied; IV Bolus Datetime: 01/29/2020 03:15 Monitor Interventions for FHR: Ultrasound Adjusted PATIENT CARE IV/Blood Work: IV Bolus Started Datetime: 01/29/2020 03:00 PAIN Pain Scale: 9 Pain Presence: Intermittent Pain Type: Contraction; Stabbing; Pressure Pain Location: Back; Perineum Pain Relief Measures: Comfort Measures Pain Coping: Requesting Pain Medication or Epidural; Crying Datetime: 01/29/2020 02:58 Provider Reviewed Strip: No Provider Notified (Name): [employer] ADMINISTRATOR Aube Notification Reason: Labor Status; Membrane Status; Pain Datetime: 01/29/2020 02:39 Effacement (%): 100 Station: 0 Vaginal Bleeding: Normal Show Cervix, Consistency: Soft Cervix, Position: Anterior Datetime: 01/29/2020 02:20 Patient Position/Activity: Birthing Ball Datetime: 01/29/2020 02:19 Comfort Measures: Coaching I/O Interventions: Clear Liquids Given Datetime: 01/29/2020 02:10 VITAL SIGNS NBP Sys/Dasia/Mean (mmHg): 132 (Annotations: 78) : 78 : 98 Pulse: 95 SpO2 (%): 100 Datetime: 01/29/2020 01:55 Hygiene: Gown Changed Datetime: 01/29/2020 00:55 Membrane Status: Ruptured Membranes Rupture Method: Artificial Amniotic Fluid Color: Clear Amniotic Fluid Amount: Moderate Amniotic Fluid Odor: Normal Membrane Comments: AROM performed by Dr. Maurice Datetime: 01/29/2020 00:50 TEACHING Instructional Method: Verbal; Verbalized Understanding (Annotations: Discussed whether pt wants epidural, is agreeable to maybe not having the time if AR OM speeds labor. Agreeable to use of jacuzzi)
== END 2020-01-30 13:50 | disposition home or self-care (01) | DRG 807 ==
LOC: WFO 21:50 → FBP 21:54 → WFO 01-29 00:19 → FBP 01-29 00:20
PROVIDERS: ADMIT Obstetrics & Gynecology; ATTEND Obstetrics & Gynecology
PROC: 10D07Z6 Extraction of Products of Conception, Vacuum, Via Natural or Artificial Opening (ICD-10-PCS; principal; 2020-01-29)
PROC: 10907ZC Drainage of Amniotic Fluid, Therapeutic from Products of Conception, Via Natural or Artificial Opening (ICD-10-PCS; 2020-01-29)
DX: O76 Abnormality in fetal heart rate and rhythm complicating labor and delivery (principal); Z37.0 Single live birth; O66.0 Obstructed labor due to shoulder dystocia; O69.81X0 Labor and delivery complicated by cord around neck, without compression, not applicable or unspecified; O99.344 Other mental disorders complicating childbirth; F32.9 Major depressive disorder, single episode, unspecified; Z3A.37 37 weeks gestation of pregnancy; Z87.59 Personal history of other complications of pregnancy, childbirth and the puerperium; Z79.899 Other long term (current) drug therapy
CPT/HCPCS: 85025; 99213; A9270; J7120